=== PATIENT | female | born 2000 | race Caucasian/White ===

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

== ENCOUNTER 2018-08-24 18:13 | Inpatient (IN) ==
[2018-08-24] MEDS ORDERED: ONDANSETRON INJ 2 MG/ML 2 ML VIAL IV PRN (18:28)
[2018-08-24] MEDS ORDERED: LACTATED RINGER'S 1,000 ML IV SCH (18:30)
[2018-08-24] MEDS ORDERED: ACETAMINOPHEN 500 MG TAB PO STA (18:41)
--- NOTE | 2018-08-24 18:54 | History & Physical Report ---
Date of Service August 24, 2018 Assessment & Plan (1) Bacterial vaginosis: 17 yo at 29+wks with fever/ chills/ tachycardia, negative initial work up in ER s/p IVF/ Tylenol with persistent fever/ tachycardia No s/s of PTL FHR reassuring VE with vaginitis/ BV Plan observe, monitor, IVF, Tylenol, IV Flagyl Bed side OB US Consult hospitalist/ called and informed the chad History of Present Illness Chief Complaint: sent from ER Primary Care Provider: NO PCP Patient is a 17 yo at 29+ wks, who presented to ER ieht fever/ chills/ sore throat and flud like symptoms since yesterday She received 2 lt of IVF, her flu swab, WBCC came back normal/ negative She had been tachycardic with fever despite Tylenol ( 1000 mg at 1130) and IVF She then c/o abdominal cramping/ soreness They sent her up here for monitoring She states she is now feeling better, still has cough/ sore throat and fever She denies ctxs/ LOF/VB/ Vaginal d/c or irritation' Last SI was 2-3 days ago +FM's N&V this morning but has been keeping fluids down She is hungry and likes to eat No recent sick contacts Her has been uncomplicated except + Chlamydia at First trimester. HECTOR was negative She had been with same partner. Allergies Allergy/AdvReac Type Severity Reaction Status Date / Time cefuroxime Allergy Intermediate RASH Unverified 08/24/18 14:31 cephalexin Allergy Unknown . Unverified 08/24/18 14:31 Home Medications Home Medications Medication Instructions Recorded Confirmed Type PNV cmb#95-ferrous fumarate-FA 1 tab PO DAILY 08/24/18 08/24/18 History [] Patient History Social History Feels Safe at Home: Yes Smoking Status: Never smoker Review of Systems All systems reviewed & are unremarkable except as noted in HPI & below Physical Exam Vital Signs (Past 24 Hours): Last Vital Signs Temp 39.3 C H 08/24/18 18:16 Pulse 137 H 08/24/18 18:16 Resp 24 08/24/18 18:16 BP 116/55 L 08/24/18 18:16 Constitutional: well nourished, + ill appearing and + lethargic ENMT: external ear and nose normal, oropharynx normal Neck: trachea midline, no thyromegaly Thyroid: normal thyroid Respiratory: normal respiratory effort, lungs clear to auscultation Auscultation: lungs clear to auscultation bilaterally Cardiovascular: RRR, no murmur, no edema Rate/Rhythm: regular rate and + tachycardic Heart Sounds: normal S1 and normal S2 Gastrointestinal (Abdomen): Soft, mild LLQ tenderness, no RLQ tendernes, no rebound Genitourinary: SSE: white-yellow d/c, cx of cervix and vagina collected Cervix closed, soft Wet prep: abundant clue cells Monitoring External Monitor 150-160's, AGA Tocodynamometer No ctxs
[2018-08-24] MEDS: metroNIDAZOLE 500 MG/100 ML BAG IV SCH (19:19)
--- NOTE | 2018-08-24 19:33 | Ultrasound Report ---
US OB limited CLINICAL HISTORY: abdominal pain, fever COMPARISON STUDY: ultrasound March 26, 2018. TECHNIQUE: Transabdominal sonography of the pelvis was performed. FINDINGS: Single viable intrauterine gestation is noted. Presentation is cephalic. Please note that a dedicated anatomical survey was not performed. The placenta is normal. The femur length measur es 5.85 cm which corresponds to an estimated gestational age of 30 weeks and 4 days. Amniotic fluid i ndex is normal at 15.5 cm. heart rate is mildly elevated at 188 bpm. The cervix was not assesse d on this exam. IMPRESSION: 1. Single viable intrauterine gestation. 2. Mildly elevated heart rate of 188 bpm, a nonspecific finding. 3. No placental abnormality. 4. Normal amniotic fluid index. Electronically signed by: Yousif Cuello M.D. 08/24/2018 7:32 PM
--- NOTE | 2018-08-24 21:16 | Obstetrical Progress Note ---
Date of Service August 24, 2018 Subjective Patient is reevaluated She feels let hot ad pain all over body/ muscle is better She received IV Flagyl/ PO Tylenol No ctxs/ LOF/VB She allergic to Keflex: rash Has taken Amoxicilline with no problems I talked to Dr. Griffiths who recommended her transferred to ICU / meeting criteria for sepsis They will start IV Clindamycin Will d/c IV flagyl since Clindamycin also covers BV Patient and her mother is aware Will follow as NST Q sift Physical Exam Vital Signs (Past 24 Hours): Last Vital Signs Temp 39.2 C H 08/24/18 19:25 Pulse 134 H 08/24/18 21:09 Resp 18 08/24/18 19:25 BP 101/51 L 08/24/18 20:24 Pulse Ox 95 08/24/18 21:09
--- NOTE | 2018-08-24 22:53 | Critical Care Consultation ---
Date of Consultation August 24, 2018 Assessment & Plan (1) Admitted to intensive care unit: Reason Critically Ill: 17-year-old patient with acute febrile illness presenting with Sirs-like criteria with persistent tachycardia and febrile state. Third trimester . NEURO - * CAM ICU: NEGATIVE * Pain/Fever: Acetaminophen PRN CARDIAC/VASCULAR - * Tachycardia: * Most likely compensatory in the setting of febrile illness. * Will monitor closely for any signs/symptoms of decompensation concerning for cardiomyopathy. * Monitor on telemetry. RESPIRATORY - * Acute bronchitis in the asthmatic patient: * Will hold on nebs secondary to tachycardia at this point. * Covered with Unasyn at this time. * No hypoxia. No tachypnea. No pleuritic pain. GI/NUTRITION - * Full diet as tolerated. RENAL/LYTES - * No acute electrolyte abnormalities. * IVF: LR at 150mL/hr - * 29.5 weeks gestation: * Concerns for bacterial vaginosis. Currently treated with IV Flagyl. * Further cultures pending. * Defer continued obstetrical evaluation/management from SCREW MACHINE OPERATOR SINGLE SPINDLE perspective. ENDO - * No history of diabetes or thyroid disease. * BSGs per unit protocol. ISS --> gtt per unit policy. HEME - * Stable H&H. * Will monitor closely with volume expanding via IV fluids. ID - * SIRS-like presentation: * PCR Influenza A POSITIVE. * Spoke with SCREW MACHINE OPERATOR SINGLE SPINDLE after results. They do suggest proceeding with Tamiflu at this time. * Continue with Unasyn for suspected underlying dental infections as well. * Flagyl for BV. * Further cultures pending. LINES/IV ACCESS - * PIVs x2 DVT PROPHYLAXIS - * Will hold at this time secondary to . * SCDs I have personally spent 60 minutes of critical care time in the direct management of this patient. This is a life/limb threatening event. This includes time spent evaluating patient, direct bedside care, chart review, placing orders, interpretation of diagnostic studies, discussion with consultants, patient, and family members, as well as other required patient management activities. This time is exclusive of all separately billable procedures, and teaching time and separate from and in addition to any other critical care service time. Thank you for allowing us to participate in the care of this patient. Please refer to my attending physician's documentation for any further recommendations. The patient was seen, examined independently, agree with assessment and plan of my colleague Dean Louie. This is a 17-year-old female with no past medical history, presented to the hospital with fever, she is in her third trimester , she is G1 para 0, she did have cough with sore throat for the past few days, she did have headache, no nausea or vomiting and no diarrhea, she has no abdominal pain, she is 29 weeks into her . No sick contact. The patient was found to be tachypneic and tachycardic, admitted to the ICU. Her heart rate was 140 at some point. The patient was given IV fluids and responded to it very well. Her past medical history is none. She is non-smoker lifetime, and family history does not contribute to peripartum illness. Her physical exam revealed a young female, does not appear to be in any distress, no fever, O2 sat 97% on room air, vital signs are stable, no oral thrush, no oral lesions, dry mucosa, S1-S2 regular rate and rhythm, slightly tachycardic, lungs are clear, rhonchi mainly at the bases, abdomen is compatible with gestational age, no edema. Her labs were reviewed which showed stable CBC, and BMP, electrolytes has been repleted. Chest x-ray reviewed twice which did not show any infiltrate. Impression: 1. Influenza A pharyngitis. 2. History of chlamydia infection. 3. Third trimester 29 weeks . 4. Possible superimposed streptococcal pharyngitis. Plan: 1. Change Unasyn to Augmentin for 5 days. 2. Continue Tamiflu. 3. Decrease IV fluid to 150ml/Hour. 4. Continue with DVT prophylaxis. 5. Oral intake. 6. Appreciate SCREW MACHINE OPERATOR SINGLE SPINDLE input. 7. Replacement of potassium and magnesium. 8. Transfer to telemetry. Discussed with SCREW MACHINE OPERATOR SINGLE SPINDLE. Critical care time spent with the patient was 35 minutes. (2) Influenza A: (3) SIRS (systemic inflammatory response syndrome): (4) Tachycardia: (5) Febrile illness: (6) Bacterial vaginosis: (7) Third trimester : History of Present Illness Attending Physician: Nina Adorno MD Patient is a 17-year-old female who is 29.5 weeks who presented to the emergency department earlier this afternoon with generalized weakness, body aches, fevers, chills, sore throat, and nonproductive cough. During evaluation, the patient was found to be febrile and tachycardic. She was resuscitated with IV fluids without resolve her tachycardia. Influenza swab was negative. Urinalysis demonstrated no infection. Leukocytosis appreciated. She is not anemic. ultrasound demonstrated no acute findings otherwise. Patient underwent pelvic exam with diagnosis of bacterial vaginosis for which she was placed on intravenous Flagyl. Patient had persistent tachycardia fever and it was felt best the patient be transferred to the ICU for sepsis syndrome. Arrival in the ICU, the patient is awake, alert, and oriented. She does complain of some mucus production with a cough at this point. She denies sore throat. She reports no further joint aches/pains. She complains of a dull headache which is not the worst headache of her life. She denies any neck pain or stiffness. She reports no blurry vision, double vision, slurred speech, facial droop, unilateral weakness/numbness, chest pain, palpitations, pleuritic pain, nausea, vomiting, abdominal discomfort, hematuria, dysuria, vaginal discharge/drainage. The patient's was initially complicated with positive serology testing for chlamydia in the first trimester. She was successfully treated with antibiotics with confirmation negative results approximately 4 weeks later. She is sexually active with her partner alone. Allergies Allergy/AdvReac Type Severity Reaction Status Date / Time cefuroxime Allergy Intermediate RASH Unverified 08/24/18 14:31 cephalexin Allergy Unknown . Unverified 08/24/18 14:31 Home Medications Home Medications Medication Instructions Recorded Confirmed Type PNV cmb#95-ferrous fumarate-FA 1 tab PO DAILY 08/24/18 08/24/18 History [] Patient History Social History Preferred Language: Gabonese Communication Ability: Effective Beliefs That Will Affect Care: None marital status: Single Current Living Situation: Parent Current Living Situation Comment: Lives with mom and FOB. Other Information That Helps Us Care for You: No Feels Safe at Home: Yes Safety Concerns: Feels Safe At This Time Smoking Status: Never smoker Hx Alcohol Use: No Hx Substance Use: No Review of Systems A complete 10 point review of systems was reviewed with the patient with pertinent positives and negatives as per history of present illness. All else were negative. Physical Exam Vital Signs (Past 24 Hours): Last Vital Signs Temp 37.2 C 08/24/18 22:42 Pulse 118 H 08/24/18 22:42 Resp 20 08/24/18 22:42 BP 131/73 08/24/18 22:42 Pulse Ox 97 08/24/18 22:42 Physical Exam: VITAL SIGNS - Vital signs and nursing notes were reviewed. GENERAL - 17-year-old female appearing her stated age who is in no acute distress. Communicates well with provider and answers questions appropriately. SKIN - Without rashes. HEAD - NC/AT. EYES - PERRL with EOMI bilaterally. Sclera anicteric. Palpebral conjunctiva pink and moist with no injection noted. EARS - No deformities of external structures noted on gross examination bilaterally. No pain elicited with palpation of the tragus bilaterally. External auditory canals without discharge or otorrhea. Tympanic membranes pearly stephenson without retraction or bulging. No fluid or purulent material visualized behind the TM. Handle of malleus, umbo, cone of light, pars tensa/flaccid all easily visualized. NOSE - Midline and without cyanosis. No epistaxis or purulent drainage noted. MOUTH/OROPHARYNX - Without perioral cyanosis. Buccal mucosa pink and moist and without leukoplakia. Tongue midline with equal elevation of palate bilaterally. No tonsillar hypertrophy, erythema, or exudates noted. Good dentition noted. NECK - Neck with FROM. Supple to palpation. No lymphadenopathy noted. No nuchal rigidity. LUNGS - Chest wall symmetric without accessory muscle use, intercostals retractions, or central cyanosis. Normal vesicular breath sounds CTA B/L. No wheezes, rales, or rhonchi appreciated. CARDIAC - RRR with S1/S2. No murmur, rubs, or gallops appreciated. Reproducible anterior chest tenderness to palpation. ABDOMEN - Abdominal contour gravid without pulsations or visible masses. BS normoactive all four quadrants. No tenderness, palpable masses, hepatosplenomegaly, or ascites noted. EXTREMITIES - No clubbing or peripheral cyanosis. No pretibial edema present. +3/5 radial, posterior tibial, and dorsalis pedis pulses palpated throughout. +5/5 strength noted in UE/LE bilaterally. NEUROLOGIC - Cranial nerves II through XII grossly intact. Sensory intact to light touch throughout. PSYCH - A&Ox3 and cooperates fully with examiner. Pt is very pleasant and interacts well with examiner.
[2018-08-24] MEDS: LACTATED RINGER'S 1,000 ML IV SCH (23:06)
[2018-08-24] MEDS: AMPICILLIN/SULBACTAM SOD 1,500 MG in 0.9 % SODIUM CHLORIDE 100 ML IV SCH (23:06)
[2018-08-24 23:18] LABS: Basophils # (auto) 0.02 K/uL (0-0.2); Basophils % (auto) 0.2 %; Eosinophils # (auto) 0.05 K/uL (0-0.5); Eosinophils % (auto) 0.5 %; Hematocrit (blood only) 30.8 % (37-47); Hemoglobin 10.5 g/dL (12.0-16.0); Immature Granulocytes # (auto) 0.05 K/uL (0.00-0.02); Immature Granulocytes % (auto) 0.5 %; Lymphocytes % (auto) 13.2 %; Mean Corpuscular Hgb Conc 34.1 g/dL (32-36); Mean Corpuscular Volume 91.4 fL (80-100); Mean Platelet Volume 9.3 fL (7.4-10.4); Monocytes # (auto) 1.02 K/uL (0.11-0.59); Monocytes % (auto) 11.2 %; Neutrophils # (auto) 6.77 K/uL (1.4-6.5); Neutrophils % (auto) 74.4 %; Platelet Count 196 K/uL (130-400); RDW Coefficient of Variation 12.6 % (11.5-14.5); RDW Standard Deviation 41.7 fL (36.4-46.3); Red Blood Count 3.37 M/uL (4.2-5.4); White Blood Count 9.11 K/uL (4.8-10.8)
[2018-08-24 23:35] LABS: BUN Creatinine Ratio 5.8 (10-20); Blood Urea Nitrogen 3 mg/dl (7-18); Carbon Dioxide 23 mmol/L (21-32); Chloride 111 mmol/L (98-107); Creatinine Clr Calc Pharmacy 178.3 ml/min; Est GFR (African American) > 150.0; Est GFR (Non-African American) 132.1; Glucose 78 mg/dl (70-99); Potassium 3.4 mmol/L (3.5-5.1); Sodium 141 mmol/L (136-145)
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
[2018-08-25 00:32] LABS: Influenza B virus by PCR Neg for Influ B (Neg)
[2018-08-25] MEDS: OSELTAMIVIR PHOSPHATE 75 MG CAP PO SCH ×3 (00:59→20:53)
[2018-08-25] MEDS ORDERED: ACETAMINOPHEN 1,000 MG/100 ML VIAL IV PRN (02:16)
[2018-08-25] MEDS ORDERED: LACTATED RINGER'S 250 ML IV ONE (02:44)
[2018-08-25] MEDS ORDERED: ONDANSETRON INJ 2 MG/ML 2 ML VIAL IV PRN (02:53)
[2018-08-25] MEDS: metroNIDAZOLE 500 MG/100 ML BAG IV SCH ×2 (03:10→12:17)
[2018-08-25 03:17] LABS: Basophils # (auto) 0.01 K/uL (0-0.2); Basophils % (auto) 0.1 %; Eosinophils # (auto) 0.04 K/uL (0-0.5); Eosinophils % (auto) 0.4 %; Hematocrit (blood only) 30.5 % (37-47); Hemoglobin 10.4 g/dL (12.0-16.0); Immature Granulocytes # (auto) 0.04 K/uL (0.00-0.02); Immature Granulocytes % (auto) 0.4 %; Lymphocytes % (auto) 13.1 %; Mean Corpuscular Hgb Conc 34.1 g/dL (32-36); Mean Platelet Volume 9.3 fL (7.4-10.4); Monocytes # (auto) 1.01 K/uL (0.11-0.59); Monocytes % (auto) 11.1 %; Neutrophils # (auto) 6.84 K/uL (1.4-6.5); Neutrophils % (auto) 74.9 %; Platelet Count 183 K/uL (130-400); RDW Coefficient of Variation 12.5 % (11.5-14.5); RDW Standard Deviation 41.5 fL (36.4-46.3); Red Blood Count 3.35 M/uL (4.2-5.4); White Blood Count 9.14 K/uL (4.8-10.8)
[2018-08-25 03:34] LABS: Alanine Aminotransferase 16 U/L (12-78); Albumin Level 2.4 gm/dl (3.4-5.0); Aspartate Aminotransferase 17 U/L (15-37); BUN Creatinine Ratio 6.1 (10-20); Blood Urea Nitrogen 3 mg/dl (7-18); Calcium 7.9 mg/dl (8.5-10.1); Carbon Dioxide 22 mmol/L (21-32); Chloride 110 mmol/L (98-107); Creatinine Clr Calc Pharmacy 205.7 ml/min; Est GFR (African American) > 150.0; Est GFR (Non-African American) 138.5; Glucose 81 mg/dl (70-99); Magnesium 1.3 mg/dl (1.8-2.4); Potassium 3.3 mmol/L (3.5-5.1); Sodium 138 mmol/L (136-145)
[2018-08-25 03:37] LABS: Albumin Globulin Ratio 0.7 (0.9-2); Alkaline Phosphatase 103 U/L (45-117); Bilirubin,Total 0.3 mg/dl (0.2-1); Globulin 3.5 gm/dl (2.5-4.0); Total Protein 5.9 gm/dl (6.4-8.2)
[2018-08-25] MEDS: AMPICILLIN/SULBACTAM SOD 1,500 MG in 0.9 % SODIUM CHLORIDE 100 ML IV SCH ×3 (05:00→16:17)
[2018-08-25] MEDS: LACTATED RINGER'S 1,000 ML IV SCH ×4 (05:34→12:30)
[2018-08-25] MEDS ORDERED: POTASSIUM CHLORIDE 20 MEQ TABCR PO STA (07:22)
--- NOTE | 2018-08-25 07:38 | Ultrasound Report ---
BILATERAL LOWER EXTREMITY VENOUS DOPPLER CLINICAL HISTORY: Shortness of breath. Cough. COMPARISON STUDY: No previous studies for comparison. TECHNIQUE: Sonography of the deep venous system of the bilateral lower extremities was performed. Co mpression and augmentation were evaluated. FINDINGS: The bilateral common femoral, superficial femoral and popliteal veins were compressible. A ugmentation was normal. Flow was shown within the deep calf vessels. IMPRESSION: No evidence of deep venous thrombus within the bilateral lower extremities. Electronically signed by: Yousif Cuello M.D. 08/25/2018 7:37 AM
--- NOTE | 2018-08-25 07:46 | XRay Report ---
XR chest 1V portable CLINICAL HISTORY: sob/cough COMPARISON STUDY: Chest radiograph August 24, 2018. TECHNIQUE: The patient's abdomen and pelvis were double shielded due to . Portable AP chest radiograph was obtained. FINDINGS: Lung volumes are normal. There is no pneumothorax or pleural effusion. There is no consolid ation. Cardiomediastinal silhouette is normal. IMPRESSION: No acute cardiopulmonary findings. Electronically signed by: Yousif Cuello M.D. 08/25/2018 7:44 AM
--- NOTE | 2018-08-25 11:09 | Obstetrical Progress Note ---
Date of Service August 25, 2018 Subjective Patient is seen and examined She feels much better compared to yesterday No more fever/ chills Still has cough No cts/ LOF/VB +FM No N&V Tolerating regular diet Ambulating, using BR Vital Signs Temp Pulse Resp BP Pulse Ox 08/25/18 09:01 118 H 115/74 08/25/18 08:00 107 H 27 H 08/25/18 07:01 37 C 109 H 16 107/47 L 97 08/25/18 06:00 112 H 18 95/46 L 96 08/25/18 05:00 114 H 19 98/49 L 95 08/25/18 04:00 37.4 C 129 H 22 112/51 L 96 08/25/18 03:00 37.4 C 127 H 19 115/53 L 96 08/25/18 02:00 38.2 C H 132 H 16 105/48 L 100 08/25/18 01:00 123 H 16 116/65 100 08/25/18 00:00 37.2 C 127 H 18 116/69 98 08/25/18 08/25/18 08/25/18 Range/Units 03:04 03:04 03:04 WBC 9.14 (4.8-10.8) K/uL RBC 3.35 L (4.2-5.4) M/uL Hgb 10.4 L (12.0-16.0) g/dL Hct 30.5 L (37-47) % MCV 91.0 (80-100) fL MCH 31.0 (25-34) pg MCHC 34.1 (32-36) g/dL RDW Std Deviation 41.5 (36.4-46.3) fL RDW Coeff of Murali 12.5 (11.5-14.5) % Plt Count 183 (130-400) K/uL MPV 9.3 (7.4-10.4) fL Immature Gran % (Auto) 0.4 % Neut % (Auto) 74.9 % Lymph % (Auto) 13.1 % Ness % (Auto) 11.1 % Eos % (Auto) 0.4 % Baso % (Auto) 0.1 % Immature Gran # (Auto) 0.04 H (0.00-0.02) K/uL Neut # (Auto) 6.84 H (1.4-6.5) K/uL Lymph # (Auto) 1.20 (1.2-3.4) K/uL Ness # (Auto) 1.01 H (0.11-0.59) K/uL Eos # (Auto) 0.04 (0-0.5) K/uL Baso # (Auto) 0.01 (0-0.2) K/uL Sodium 138 (136-145) mmol/L Potassium 3.3 L (3.5-5.1) mmol/L Chloride 110 H (98-107) mmol/L Carbon Dioxide 22 (21-32) mmol/L Anion Gap 6.0 (3-11) BUN 3 L (7-18) mg/dl Creatinine 0.52 L (0.6-1.2) mg/dl Est Cr Clr Drug Dosing 205.7 ml/min Est GFR ( Amer) > 150.0 Est GFR (Non-Af Amer) 138.5 BUN/Creatinine Ratio 6.1 L (10-20) Glucose 81 (70-99) mg/dl Lactate (0.4-2.0) mmol/L Calcium 7.9 L (8.5-10.1) mg/dl Magnesium 1.3 L (1.8-2.4) mg/dl Total Bilirubin 0.3 (0.2-1) mg/dl AST 17 (15-37) U/L ALT 16 (12-78) U/L Alkaline Phosphatase 103 (45-117) U/L Troponin I < 0.015 (0-0.045) ng/ml Total Protein 5.9 L (6.4-8.2) gm/dl Albumin 2.4 L (3.4-5.0) gm/dl Globulin 3.5 (2.5-4.0) gm/dl Albumin/Globulin Ratio 0.7 L (0.9-2) Nasal Screen MRSA (PCR) (Negative) C. pneumoniae IgG Ab C. trachomatis IgG Ab C. psittaci IgG Titer Monoscreen (Negative) Influenza Type A (PCR) (Neg) Influenza Type B (PCR) (Neg) 08/24/18 08/24/18 08/24/18 Range/Units 23:50 23:15 23:04 WBC (4.8-10.8) K/uL RBC (4.2-5.4) M/uL Hgb (12.0-16.0) g/dL Hct (37-47) % MCV (80-100) fL MCH (25-34) pg MCHC (32-36) g/dL RDW Std Deviation (36.4-46.3) fL RDW Coeff of Murali (11.5-14.5) % Plt Count (130-400) K/uL MPV (7.4-10.4) fL Immature Gran % (Auto) % Neut % (Auto) % Lymph % (Auto) % Ness % (Auto) % Eos % (Auto) % Baso % (Auto) % Immature Gran # (Auto) (0.00-0.02) K/uL Neut # (Auto) (1.4-6.5) K/uL Lymph # (Auto) (1.2-3.4) K/uL Ness # (Auto) (0.11-0.59) K/uL Eos # (Auto) (0-0.5) K/uL Baso # (Auto) (0-0.2) K/uL Sodium (136-145) mmol/L Potassium (3.5-5.1) mmol/L Chloride (98-107) mmol/L Carbon Dioxide (21-32) mmol/L Anion Gap (3-11) BUN (7-18) mg/dl Creatinine (0.6-1.2) mg/dl Est Cr Clr Drug Dosing ml/min Est GFR ( Amer) Est GFR (Non-Af Amer) BUN/Creatinine Ratio (10-20) Glucose (70-99) mg/dl Lactate (0.4-2.0) mmol/L Calcium (8.5-10.1) mg/dl Magnesium (1.8-2.4) mg/dl Total Bilirubin (0.2-1) mg/dl AST (15-37) U/L ALT (12-78) U/L Alkaline Phosphatase (45-117) U/L Troponin I (0-0.045) ng/ml Total Protein (6.4-8.2) gm/dl Albumin (3.4-5.0) gm/dl Globulin (2.5-4.0) gm/dl Albumin/Globulin Ratio (0.9-2) Nasal Screen MRSA (PCR) Negative (Negative) C. pneumoniae IgG Ab C. trachomatis IgG Ab C. psittaci IgG Titer Monoscreen Negative (Negative) Influenza Type A (PCR) Pos for Influ A A* (Neg) Influenza Type B (PCR) Neg for Influ B (Neg) 08/24/18 08/24/18 08/24/18 Range/Units 23:04 23:04 23:04 WBC 9.11 (4.8-10.8) K/uL RBC 3.37 L (4.2-5.4) M/uL Hgb 10.5 L (12.0-16.0) g/dL Hct 30.8 L (37-47) % MCV 91.4 (80-100) fL MCH 31.2 (25-34) pg MCHC 34.1 (32-36) g/dL RDW Std Deviation 41.7 (36.4-46.3) fL RDW Coeff of Murali 12.6 (11.5-14.5) % Plt Count 196 (130-400) K/uL MPV 9.3 (7.4-10.4) fL Immature Gran % (Auto) 0.5 % Neut % (Auto) 74.4 % Lymph % (Auto) 13.2 % Ness % (Auto) 11.2 % Eos % (Auto) 0.5 % Baso % (Auto) 0.2 % Immature Gran # (Auto) 0.05 H (0.00-0.02) K/uL Neut # (Auto) 6.77 H (1.4-6.5) K/uL Lymph # (Auto) 1.20 (1.2-3.4) K/uL Ness # (Auto) 1.02 H (0.11-0.59) K/uL Eos # (Auto) 0.05 (0-0.5) K/uL Baso # (Auto) 0.02 (0-0.2) K/uL Sodium 141 (136-145) mmol/L Potassium 3.4 L (3.5-5.1) mmol/L Chloride 111 H (98-107) mmol/L Carbon Dioxide 23 (21-32) mmol/L Anion Gap 7.0 (3-11) BUN 3 L (7-18) mg/dl Creatinine 0.60 (0.6-1.2) mg/dl Est Cr Clr Drug Dosing 178.3 ml/min Est GFR ( Amer) > 150.0 Est GFR (Non-Af Amer) 132.1 BUN/Creatinine Ratio 5.8 L (10-20) Glucose 78 (70-99) mg/dl Lactate 1.1 (0.4-2.0) mmol/L Calcium 8.0 L (8.5-10.1) mg/dl Magnesium (1.8-2.4) mg/dl Total Bilirubin (0.2-1) mg/dl AST (15-37) U/L ALT (12-78) U/L Alkaline Phosphatase (45-117) U/L Troponin I (0-0.045) ng/ml Total Protein (6.4-8.2) gm/dl Albumin (3.4-5.0) gm/dl Globulin (2.5-4.0) gm/dl Albumin/Globulin Ratio (0.9-2) Nasal Screen MRSA (PCR) (Negative) C. pneumoniae IgG Ab C. trachomatis IgG Ab C. psittaci IgG Titer Monoscreen (Negative) Influenza Type A (PCR) (Neg) Influenza Type B (PCR) (Neg) 08/24/18 Range/Units 14:50 WBC (4.8-10.8) K/uL RBC (4.2-5.4) M/uL Hgb (12.0-16.0) g/dL Hct (37-47) % MCV (80-100) fL MCH (25-34) pg MCHC (32-36) g/dL RDW Std Deviation (36.4-46.3) fL RDW Coeff of Murali (11.5-14.5) % Plt Count (130-400) K/uL MPV (7.4-10.4) fL Immature Gran % (Auto) % Neut % (Auto) % Lymph % (Auto) % Ness % (Auto) % Eos % (Auto) % Baso % (Auto) % Immature Gran # (Auto) (0.00-0.02) K/uL Neut # (Auto) (1.4-6.5) K/uL Lymph # (Auto) (1.2-3.4) K/uL Ness # (Auto) (0.11-0.59) K/uL Eos # (Auto) (0-0.5) K/uL Baso # (Auto) (0-0.2) K/uL Sodium (136-145) mmol/L Potassium (3.5-5.1) mmol/L Chloride (98-107) mmol/L Carbon Dioxide (21-32) mmol/L Anion Gap (3-11) BUN (7-18) mg/dl Creatinine (0.6-1.2) mg/dl Est Cr Clr Drug Dosing ml/min Est GFR ( Amer) Est GFR (Non-Af Amer) BUN/Creatinine Ratio (10-20) Glucose (70-99) mg/dl Lactate (0.4-2.0) mmol/L Calcium (8.5-10.1) mg/dl Magnesium (1.8-2.4) mg/dl Total Bilirubin (0.2-1) mg/dl AST (15-37) U/L ALT (12-78) U/L Alkaline Phosphatase (45-117) U/L Troponin I (0-0.045) ng/ml Total Protein (6.4-8.2) gm/dl Albumin (3.4-5.0) gm/dl Globulin (2.5-4.0) gm/dl Albumin/Globulin Ratio (0.9-2) Nasal Screen MRSA (PCR) (Negative) C. pneumoniae IgG Ab Pending C. trachomatis IgG Ab Pending C. psittaci IgG Titer Pending Monoscreen (Negative) Influenza Type A (PCR) (Neg) Influenza Type B (PCR) (Neg) PE: Alert orientedx3, NAD,smiling Abd soft, NT gravid FHR 150's, she is on NST now Ext NT, no edema AP: 17 yo at 29+ wks admitted for fever/ tachycardia, Influenza A+ On Tamiflu, IV unasyn: plan to switch to PO AUgmentin On IV Flagyl: will switch to PO Transfer to telemetry floor per ICU recommendation No s/s of PTL FHR reassuring Continue to monitor closely d/c plan per medical team Physical Exam Vital Signs (Past 24 Hours): Last Vital Signs Temp 37 C 08/25/18 07:01 Pulse 118 H 08/25/18 09:01 Resp 27 H 08/25/18 08:00 BP 115/74 08/25/18 09:01 Pulse Ox 97 08/25/18 07:01
[2018-08-25] MEDS: ACETAMINOPHEN 325 MG TAB PO PRN ×2 (11:14→16:26)
[2018-08-25] MEDS: MAGNESIUM OXIDE 400 MG TAB PO SCH ×2 (11:46→20:53)
--- NOTE | 2018-08-25 12:49 | Critical Care Progress Note ---
Date of Service August 25, 2018 Assessment & Plan (1) Influenza A: Impression: 1. Influenza A pharyngitis. 2. Chlamydia infection on Flagyl. 3. Third trimester, 29 weeks . 4. Superimposed bacterial pharyngitis cannot be excluded. Plan: 1. I will change Unasyn to Augmentin for total of 5 days. 2. Continue Tamiflu twice daily for 7 days. 3. Decrease IV fluid 250 mL an hour and then taper to off for the next 10 hours. 4. Oral intake. 5. Appreciate EXECUTIVE STAFF ASSISTANT input, discussed with them. 6. Telemetry floor. 7. Replacement of electrolytes. Thank you, discussed with the staff on rounds and details. CCM time was 35 minutes. Subjective The patient is stable overnight, 2 episodes of tachycardia which is expected in a patient who is in the third trimester of , the patient when I interviewed her, she feels better, denies any pain, no cough or shortness of breath at the moment, she does have sore throat which has been persistent. She tested positive for influenza A. She has been maintained on Unasyn, Flagyl and Tamiflu. IV fluid has been continued at 200 and hour. Physical Exam Vital Signs (Past 24 Hours): Last Vital Signs Temp 37.3 C 08/25/18 12:23 Pulse 90 08/25/18 12:40 Resp 20 08/25/18 12:23 BP 152/83 H 08/25/18 12:40 Pulse Ox 96 08/25/18 12:23 Physical Exam: Young female does not appear to be in any distress, S1-S2 regular rate and rhythm, slight tachycardia, lungs with distant breath sounds, no oral lesion, no rash, abdomen consistent with her gestational age. No edema. Results & Data Laboratory Results Labs were reviewed personally Diagnostic Findings Chest x-ray did not show any pneumonia.
--- NOTE | 2018-08-25 15:41 | Hospitalist Progress Note ---
Date of Service August 25, 2018 Assessment & Plan (1) SIRS (systemic inflammatory response syndrome): presented with fever , tachycardia , source of infection : positive influenza A clinically improved overnight after IV hydration remains afebrile since morning Vitals stable cont Tx for Influenza (2) Influenza A: influenza A positive started on Tamiflu complete 5 days tx (3) Third trimester : normal heart sound in USG with appreciate input from OB (4) Bacterial vaginosis: started on falgyl FULL CODE DISPOSITION; expected to be discharged home in next 1-2 days if remains medically stable /afebrile Subjective afebrile , vitals stable sitting up , finishing lunch denies of any headache , no body aches or pain no nausea /vomiting , no diarrhea or symptoms Physical Exam Vital Signs (Past 24 Hours): Last Vital Signs Temp 37 C 08/25/18 14:53 Pulse 97 H 08/25/18 14:53 Resp 18 08/25/18 14:53 BP 98/50 L 08/25/18 14:53 Pulse Ox 96 08/25/18 14:53 Physical Exam: GENERAL: No sign of distress, HEENT: Sclera nonicteric, pink-purple bilateral equal reactive to light extraocular muscle intact Normal oral mucosa, neck: No JVD, no thyromegaly, trachea midline Lungs: Clear to auscultate, no wheeze or rales Cardiovascular: Regular S1 and S2, no murmur or gallop, no JVD, no lower extremity edema Abdomen: Soft, nontender, bowel sounds active, Uterus : Gravid Extremities: No rash or deformity, normal joint, Neuro: No focal neurological deficit, no dysarthria, no facial droop Psych: Alert awake oriented x3: Euthymic Skin: No rash LYMPH NODES: No cervical lymphadenopathy
[2018-08-25] MEDS ORDERED: POTASSIUM CHLORIDE 10 MEQ TABCR PO ONE (17:00)
[2018-08-25] MEDS: AMOXICILLIN/CLAVULANATE 500 MG TAB PO SCH (17:47)
[2018-08-25] MEDS: metroNIDAZOLE 500 MG TAB PO SCH (20:53)
[2018-08-25] MEDS ORDERED: MAGNESIUM OXIDE 400 MG TAB PO SCH (21:00)
[2018-08-26] MEDS: AMOXICILLIN/CLAVULANATE 500 MG TAB PO SCH (08:40)
[2018-08-26] MEDS: OSELTAMIVIR PHOSPHATE 75 MG CAP PO SCH (08:40)
[2018-08-26] MEDS: metroNIDAZOLE 500 MG TAB PO SCH (08:40)
[2018-08-26] MEDS: MAGNESIUM OXIDE 400 MG TAB PO SCH (08:41)
[2018-08-26] MEDS: ACETAMINOPHEN 325 MG TAB PO PRN (08:45)
[2018-08-26] MEDS ORDERED: PRENATAL VITAMIN 1 TAB PO SCH (09:00)
[2018-08-26 09:58] LABS: Calcium 8.2 mg/dl (8.5-10.1); Creatinine Clr Calc Pharmacy 145.9 ml/min; Est GFR (African American) 136.1; Est GFR (Non-African American) 117.4; Magnesium 1.4 mg/dl (1.8-2.4); Potassium 3.4 mmol/L (3.5-5.1)
--- NOTE | 2018-08-26 10:36 | Obstetrical Progress Note ---
Date of Service August 26, 2018 Subjective feeling much better Physical Exam Vital Signs (Past 24 Hours): Last Vital Signs Temp 36.9 C 08/26/18 07:59 Pulse 91 H 08/26/18 07:59 Resp 22 08/26/18 07:59 BP 109/69 08/26/18 07:59 Pulse Ox 93 08/26/18 07:59 Constitutional: WD/WN, vitals as above comfortable Gastrointestinal (Abdomen): Percussion/Palpation: abdomen soft NST Cat 1 afebrile Results & Data Laboratory Results Vital Signs Temp Pulse Pulse Pulse Resp BP BP 08/26/18 07:59 36.9 C 91 H 22 109/69 08/26/18 04:27 36.8 C 99 H 18 119/75 08/26/18 04:10 36.8 C 99 H 18 119/75 08/25/18 23:30 36.7 C 101 H 18 118/81 08/25/18 20:15 36.8 C 100 H 18 117/74 08/25/18 18:03 37.0 C 98 H 18 117/75 08/25/18 14:53 37 C 97 H 18 98/50 L 08/25/18 12:40 90 152/83 H 08/25/18 12:23 37.3 C 110 H 20 116/66 08/25/18 11:01 115 H 18 119/73 Pulse Ox 08/26/18 07:59 93 08/26/18 04:27 93 08/26/18 04:10 93 08/25/18 23:30 97 08/25/18 20:15 98 08/25/18 18:03 97 08/25/18 14:53 96 08/25/18 12:40 08/25/18 12:23 96 08/25/18 11:01 Intake and Output 08/25/18 08/26/18 08/26/18 22:59 06:59 14:59 Intake Total 1000 / 2954.000 Balance 1000 / 1054.000 Intake: IV 1000 / 2104.000 Unasyn 1,500 mg In Sodium 0 / 104 Chloride 100 ml @ 200 mls/hr IV Q6H GÓMEZ Rx#:[id number] Lr 1,000 ml @ 150 mls/hr IV . 1000 / 2000.000 Q6H40M GÓMEZ Rx#:[id number] 08/24/18 08/24/18 08/24/18 23:04 23:04 23:04 WBC 9.11 RBC 3.37 L Hgb 10.5 L Hct 30.8 L MCV 91.4 MCH 31.2 MCHC 34.1 RDW Std Deviation 41.7 RDW Coeff of Murali 12.6 Plt Count 196 MPV 9.3 Immature Gran % (Auto) 0.5 Neut % (Auto) 74.4 Lymph % (Auto) 13.2 [place] % (Auto) 11.2 Eos % (Auto) 0.5 Baso % (Auto) 0.2 Immature Gran # (Auto) 0.05 H Neut # (Auto) 6.77 H Lymph # (Auto) 1.20 [place] # (Auto) 1.02 H Eos # (Auto) 0.05 Baso # (Auto) 0.02 Sodium 141 Potassium 3.4 L Chloride 111 H Carbon Dioxide 23 Anion Gap 7.0 BUN 3 L Creatinine 0.60 Est Cr Clr Drug Dosing 178.3 Est GFR ( Amer) > 150.0 Est GFR (Non-Af Amer) 132.1 BUN/Creatinine Ratio 5.8 L Glucose 78 Lactate 1.1 Calcium 8.0 L Magnesium Total Bilirubin AST ALT Alkaline Phosphatase Troponin I Total Protein Albumin Globulin Albumin/Globulin Ratio Nasal Screen MRSA (PCR) Monoscreen Influenza Type A (PCR) Influenza Type B (PCR) 08/24/18 08/24/18 08/24/18 23:04 23:15 23:50 WBC RBC Hgb Hct MCV MCH MCHC RDW Std Deviation RDW Coeff of Murali Plt Count MPV Immature Gran % (Auto) Neut % (Auto) Lymph % (Auto) [place] % (Auto) Eos % (Auto) Baso % (Auto) Immature Gran # (Auto) Neut # (Auto) Lymph # (Auto) [place] # (Auto) Eos # (Auto) Baso # (Auto) Sodium Potassium Chloride Carbon Dioxide Anion Gap BUN Creatinine Est Cr Clr Drug Dosing Est GFR ( Amer) Est GFR (Non-Af Amer) BUN/Creatinine Ratio Glucose Lactate Calcium Magnesium Total Bilirubin AST ALT Alkaline Phosphatase Troponin I Total Protein Albumin Globulin Albumin/Globulin Ratio Nasal Screen MRSA (PCR) Negative Monoscreen Negative Influenza Type A (PCR) Pos for Influ A A* Influenza Type B (PCR) Neg for Influ B 08/25/18 08/25/18 08/25/18 03:04 03:04 03:04 WBC 9.14 RBC 3.35 L Hgb 10.4 L Hct 30.5 L MCV 91.0 MCH 31.0 MCHC 34.1 RDW Std Deviation 41.5 RDW Coeff of Murali 12.5 Plt Count 183 MPV 9.3 Immature Gran % (Auto) 0.4 Neut % (Auto) 74.9 Lymph % (Auto) 13.1 [place] % (Auto) 11.1 Eos % (Auto) 0.4 Baso % (Auto) 0.1 Immature Gran # (Auto) 0.04 H Neut # (Auto) 6.84 H Lymph # (Auto) 1.20 [place] # (Auto) 1.01 H Eos # (Auto) 0.04 Baso # (Auto) 0.01 Sodium 138 Potassium 3.3 L Chloride 110 H Carbon Dioxide 22 Anion Gap 6.0 BUN 3 L Creatinine 0.52 L Est Cr Clr Drug Dosing 205.7 Est GFR ( Amer) > 150.0 Est GFR (Non-Af Amer) 138.5 BUN/Creatinine Ratio 6.1 L Glucose 81 Lactate Calcium 7.9 L Magnesium 1.3 L Total Bilirubin 0.3 AST 17 ALT 16 Alkaline Phosphatase 103 Troponin I < 0.015 Total Protein 5.9 L Albumin 2.4 L Globulin 3.5 Albumin/Globulin Ratio 0.7 L Nasal Screen MRSA (PCR) Monoscreen Influenza Type A (PCR) Influenza Type B (PCR) 08/26/18 09:22 WBC RBC Hgb Hct MCV MCH MCHC RDW Std Deviation RDW Coeff of Murali Plt Count MPV Immature Gran % (Auto) Neut % (Auto) Lymph % (Auto) [place] % (Auto) Eos % (Auto) Baso % (Auto) Immature Gran # (Auto) Neut # (Auto) Lymph # (Auto) [place] # (Auto) Eos # (Auto) Baso # (Auto) Sodium 139 Potassium 3.4 L Chloride 108 H Carbon Dioxide 21 Anion Gap 10.0 BUN 4 L Creatinine 0.74 Est Cr Clr Drug Dosing 145.9 Est GFR ( Amer) 136.1 Est GFR (Non-Af Amer) 117.4 BUN/Creatinine Ratio 6.0 L Glucose 148 H Lactate Calcium 8.2 L Magnesium 1.4 L Total Bilirubin AST ALT Alkaline Phosphatase Troponin I Total Protein Albumin Globulin Albumin/Globulin Ratio Nasal Screen MRSA (PCR) Monoscreen Influenza Type A (PCR) Influenza Type B (PCR) Will discharge home follow up in office
--- NOTE | 2018-08-31 14:55 | Discharge Summary ---
HISTORY OF PRESENT ILLNESS: The patient is a 17-year-old female 1, para 0, presents to the ER with flu-like symptoms, temperature and 29-1/2 weeks . Her past medical history is significant for migraines and asthma. She is admitted from the ER with signs and symptoms of influenza versus dehydration. The patient was admitted. She had a workup. She ended up going to the ICU due to systemic inflammatory response syndrome and positive for influenza A. She was given IV hydration and Tamiflu and started on Flagyl for bacterial vaginosis. Her echocardiogram and EKG were normal. The patient was subsequently discharged home in stable condition on 08/26/2018 with diagnoses of and influenza A, stable. She was continued on Tamiflu on discharge and will be seen in 1 week in the office.
== END 2018-08-26 12:56 | disposition home or self-care (01) | DRG 832 ==
LOC: OPB 18:13 → 4S1 18:15 → 1E 22:40 → 2E 08-25 12:05 → 4E 08-25 18:02 → 4N 08-25 20:18

== ENCOUNTER 2018-11-08 05:47 | Inpatient (IN) ==
[2018-11-08] MEDS ORDERED: OXYTOCIN 30 UNITS/500 ML BAG IV PRN ×2 (06:22→14:38)
[2018-11-08 06:47] LABS: Hematocrit (blood only) 36.5 % (37-47); Hemoglobin 12.3 g/dL (12.0-16.0); Mean Corpuscular Volume 86.5 fL (80-100); Mean Platelet Volume 10.2 fL (7.4-10.4); Platelet Count 208 K/uL (130-400); RDW Coefficient of Variation 13.9 % (11.5-14.5); RDW Standard Deviation 43.1 fL (36.4-46.3); Red Blood Count 4.22 M/uL (4.2-5.4); White Blood Count 13.86 K/uL (4.8-10.8)
[2018-11-08 06:48] LABS: Mean Corpuscular Hgb Conc 33.7 g/dL (32-36)
[2018-11-08] MEDS ORDERED: BUPIVACAINE 0.25% 30 ML VIAL ONE (06:54)
[2018-11-08] MEDS ORDERED: ePHEDrine sulfate 50 MG/ML AMP ONE (06:54)
[2018-11-08] MEDS ORDERED: fentaNYL 2MCG/ML ROPIV 1.25MG/ML 100 ML BAG EPI ONE (06:55)
[2018-11-08] MEDS ORDERED: fentaNYL citrate 100 MCG/2 ML VIAL ONE (06:55)
[2018-11-08] MEDS: LACTATED RINGER'S 1,000 ML IV PRN ×2 (07:00→09:47)
--- NOTE | 2018-11-08 07:01 | Obstetrical Progress Note ---
Date of Service November 08, 2018 Physical Exam Physical Exam: Admit Note 18 F P0010 at 40.1 weeks admitted in active labor. Cervix 6-7/90/0/bulging membranes/vertex by nurse. GBS is negative. FHT Cat 1. Patient will be admitted and is planning an epidural. Results & Data Vital Signs (Past 12 Hours) Vital Signs Temp Pulse Resp BP 11/08/18 05:59 37.4 C 109 H 20 138/71 11/08/18 05:53 113 H 198/85 H
[2018-11-08] MEDS ORDERED: DiphenhydrAMINE HCL 50 MG/ML VIAL IV PRN (07:17)
[2018-11-08] MEDS ORDERED: NALOXONE HCL 1 MG in SODIUM CHLORIDE 0.9% 1000ML 1,000 ML IV PRN (07:17)
[2018-11-08] MEDS ORDERED: NALOXONE HCL 0.4 MG/1 ML VIAL/CARP IV PRN (07:17)
[2018-11-08] MEDS ORDERED: fentaNYL 2MCG/ML ROPIV 1.25MG/ML 100 ML BAG EPI PRN (07:17)
[2018-11-08] MEDS ORDERED: ePHEDrine sulfate 50 MG/ML AMP IV PRN (07:17)
[2018-11-08] MEDS ORDERED: NALBUPHINE HCL INJ 10 MG/ML AMP IV PRN (07:17)
[2018-11-08] MEDS ORDERED: ONDANSETRON INJ 2 MG/ML 2 ML VIAL IV PRN (07:17)
--- NOTE | 2018-11-08 07:19 | Anesthesiology Consultation ---
Date of Service November 08, 2018 Assessment & Plan (1) Encounter for pre-operative examination: Chart Review Chart Review: Patient NOT seen in Pre Admission Testing and Acceptable Risk for Labor Epidural Consults Requested none History Height/Weight Height: 5 ft 7 in Weight: 102.512 kg Allergies Allergy/AdvReac Type Severity Reaction Status Date / Time cefuroxime Allergy Intermediate RASH Verified 11/08/18 06:32 cephalexin Allergy Unknown . Verified 11/08/18 06:32 Medications Home Medications Medication Instructions Recorded Confirmed Last Taken PNV cmb#95-ferrous fumarate-FA 1 tab PO DAILY 08/24/18 11/08/18 11/07/18 08:00 [] Past Medical History Medical History Anxiety Depression Exercise / Class Metabolic Activity II 4-5 Yardwork/Stairs/Walk up hill Past Anesthesia History No Hx of Anesthesia Complications and No Family Hx of Anesthesia Complications History of PONV No Hx of PONV and No Hx of Motion Sickness Social History Smoking Status: Former smoker Hx Alcohol Use: No Hx Substance Use: No substance use type: does not use Physical Exam Vital Signs Last Vital Signs Temp 37.4 C 11/08/18 05:59 Pulse 111 H 11/08/18 07:28 Resp 20 11/08/18 07:19 BP 140/71 11/08/18 07:23 Pulse Ox 99 11/08/18 07:28 Testing Laboratory Results 11/08/18 06:32
--- NOTE | 2018-11-08 08:28 | History & Physical Report ---
Date of Service November 08, 2018 Assessment & Plan (1) Uterine contractions at greater than 20 weeks of gestation: 18 yo at 40.1 wks admitted for labor, received epdiraul for pain GBS negative FHR reassuring Continue to monitor Anticipate History of Present Illness Chief Complaint: Contractions Primary Care Provider: NO PCP Patient is a 18 yo at 40.1 wks, started to have ctxs around 4 am, no LOF/VB +FM She presented in active labor and received epidural for pain Comfortable now Her has been uncomplicated except admission for influenza / pneumonia during this GBS negative Allergies Allergy/AdvReac Type Severity Reaction Status Date / Time cefuroxime Allergy Intermediate RASH Verified 11/08/18 06:32 cephalexin Allergy Unknown . Verified 11/08/18 06:32 Home Medications Home Medications Medication Instructions Recorded Confirmed Type PNV cmb#95-ferrous fumarate-FA 1 tab PO DAILY 08/24/18 11/08/18 History [] Patient History Medical History Anxiety Depression Social History Preferred Language: Nepali Communication Ability: Effective Beliefs That Will Affect Care: None marital status: Single Current Living Situation: Other Current Living Situation Comment: fob Other Information That Helps Us Care for You: No Feels Safe at Home: Yes Safety Concerns: Feels Safe At This Time Smoking Status: Former smoker Hx Alcohol Use: No 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 h/o Genital HSV h/o Chlamydia on 04/2018, treated and HECTOR was negative Review of Systems All systems reviewed & are unremarkable except as noted in HPI & below Physical Exam Genitourinary: VE: 6cm/ 80%/ -1, bulging bag, AROM'ed clear fluid, vertex Results & Data Vital Signs (Past 12 Hours) Vital Signs Temp Pulse Resp BP Pulse Ox 11/08/18 08:22 94 H 129/73 11/08/18 08:18 98 H 98 11/08/18 08:13 104 H 98 11/08/18 08:08 97 H 96 11/08/18 08:03 104 H 151/84 H 97 11/08/18 07:58 107 H 98 06/07/19 07:57 108 H 156/87 H 11/08/18 07:55 104 H 148/81 H 11/08/18 07:53 108 H 131/79 97 11/08/18 07:51 104 H 135/81 11/08/18 07:49 104 H 142/79 H 11/08/18 07:48 98 H 97 11/08/18 07:47 100 H 156/87 H 11/08/18 07:45 99 H 117/65 11/08/18 07:43 102 H 126/73 98 11/08/18 07:41 101 H 134/69 11/08/18 07:39 93 H 120/65 11/08/18 07:38 107 H 97 11/08/18 07:37 89 127/74 11/08/18 07:35 100 H 140/77 11/08/18 07:33 99 H 99 11/08/18 07:28 111 H 99 11/08/18 07:23 103 H 140/71 100 11/08/18 07:19 92 H 20 135/73 11/08/18 05:59 37.4 C 109 H 20 138/71 11/08/18 05:53 113 H 198/85 H Monitoring External Monitor Category I Tocodynamometer Ctxs q 1-2 min
[2018-11-08 08:46] LABS: Albumin Level 2.7 gm/dl (3.4-5.0); BUN Creatinine Ratio 8.1 (10-20); Calcium 9.5 mg/dl (8.5-10.1); Creatinine Clr Calc Pharmacy 141.6 ml/min; Est GFR (African American) 126.8; Est GFR (Non-African American) 109.4; Potassium 3.3 mmol/L (3.5-5.1)
[2018-11-08 08:49] LABS: Albumin Globulin Ratio 0.7 (0.9-2); Bilirubin,Total 0.3 mg/dl (0.2-1); Globulin 4.1 gm/dl (2.5-4.0); Total Protein 6.8 gm/dl (6.4-8.2)
--- NOTE | 2018-11-08 13:20 | Obstetrical Progress Note ---
Date of Service November 08, 2018 Subjective Patient started to push about 10 min ago Head is partially FHR categ I Ctxs q 2-3 min Anticipate Results & Data Vital Signs (Past 12 Hours) Vital Signs Temp Pulse Resp BP Pulse Ox 11/08/18 13:18 133 H 100 11/08/18 13:13 148 H 100 11/08/18 13:08 133 H 98 11/08/18 13:07 97 H 149/73 H 11/08/18 13:03 122 H 100 11/08/18 12:58 100 H 100 11/08/18 12:53 99 H 100 11/08/18 12:51 112 H 129/76 11/08/18 12:48 117 H 100 11/08/18 12:43 98 H 100 11/08/18 12:38 97 H 126/69 100 11/08/18 12:33 96 H 100 11/08/18 12:28 96 H 100 11/08/18 12:23 104 H 100 11/08/18 12:22 96 H 131/68 11/08/18 12:18 108 H 100 11/08/18 12:13 98 H 100 11/08/18 12:09 99 H 92 11/08/18 12:08 95 H 100 11/08/18 12:06 103 H 124/58 L 11/08/18 12:03 97 H 100 11/08/18 11:58 121 H 97 11/08/18 11:53 112 H 100 11/08/18 11:51 106 H 128/60 11/08/18 11:50 105 H 92 11/08/18 11:48 107 H 100 11/08/18 11:43 105 H 100 11/08/18 11:38 107 H 100 11/08/18 11:37 97 H 128/66 11/08/18 11:33 101 H 100 11/08/18 11:30 101 H 93 11/08/18 11:28 92 H 100 11/08/18 11:23 93 H 100 11/08/18 11:21 96 H 127/76 11/08/18 11:18 102 H 100 11/08/18 11:13 104 H 99 11/08/18 11:11 119 H 93 11/08/18 11:08 121 H 96 11/08/18 11:06 37.2 C 110 H 20 137/96 06/07/19 11:03 109 H 100 11/08/18 10:59 108 H 94 11/08/18 10:58 98 H 99 11/08/18 10:53 122 H 100 11/08/18 10:52 110 H 132/76 11/08/18 10:48 110 H 100 11/08/18 10:43 106 H 100 11/08/18 10:38 111 H 100 11/08/18 10:37 110 H 130/74 11/08/18 10:33 99 H 100 11/08/18 10:28 100 H 100 11/08/18 10:23 102 H 100 11/08/18 10:22 105 H 20 131/64 11/08/18 10:18 101 H 100 11/08/18 10:13 113 H 100 11/08/18 10:08 99 H 100 11/08/18 10:07 94 H 125/64 11/08/18 10:03 87 100 11/08/18 09:58 91 H 100 11/08/18 09:53 93 H 100 11/08/18 09:51 95 H 118/67 11/08/18 09:48 89 100 11/08/18 09:43 103 H 100 11/08/18 09:38 101 H 100 11/08/18 09:37 93 H 91 11/08/18 09:36 85 20 128/72 11/08/18 09:33 99 H 100 11/08/18 09:28 95 H 100 11/08/18 09:23 101 H 119/70 100 11/08/18 09:20 102 H 92 11/08/18 09:18 95 H 96 11/08/18 09:13 94 H 100 11/08/18 09:08 90 100 11/08/18 09:06 96 H 126/66 11/08/18 09:03 106 H 100 11/08/18 09:00 37.0 C 11/08/18 08:58 98 H 99 11/08/18 08:53 96 H 98 11/08/18 08:51 20 126/69 11/08/18 08:48 94 H 98 11/08/18 08:43 98 H 98 11/08/18 08:38 90 97 11/08/18 08:37 90 123/70 11/08/18 08:33 97 H 98 11/08/18 08:30 103 H 92 11/08/18 08:28 97 H 98 11/08/18 08:23 102 H 98 11/08/18 08:22 94 H 20 129/73 11/08/18 08:18 98 H 98 11/08/18 08:13 104 H 98 11/08/18 08:08 97 H 96 11/08/18 08:03 104 H 151/84 H 97 11/08/18 07:58 107 H 98 11/08/18 07:57 108 H 156/87 H 11/08/18 07:55 104 H 148/81 H 11/08/18 07:53 108 H 131/79 97 11/08/18 07:51 104 H 135/81 11/08/18 07:49 104 H 142/79 H 11/08/18 07:48 98 H 97 11/08/18 07:47 100 H 156/87 H 11/08/18 07:45 99 H 117/65 11/08/18 07:43 102 H 126/73 98 11/08/18 07:41 101 H 134/69 11/08/18 07:39 93 H 120/65 11/08/18 07:38 107 H 97 11/08/18 07:37 89 127/74 11/08/18 07:35 100 H 140/77 11/08/18 07:33 99 H 99 11/08/18 07:28 111 H 99 11/08/18 07:23 103 H 140/71 100 11/08/18 07:19 92 H 20 135/73 11/08/18 05:59 37.4 C 109 H 20 138/71 11/08/18 05:53 113 H 198/85 H
--- NOTE | 2018-11-08 14:35 | Anesthesia Procedure Note ---
Date of Service November 08, 2018 Anesthesia Post Epidural Note Vital Signs Vital Signs: Temp Pulse Resp BP Pulse Ox 37.2 C 117 H 20 118/59 L 98 11/08/18 11:06 11/08/18 14:21 11/08/18 14:21 11/08/18 14:21 11/08/18 13:48 Pain Intensity Bilateral Abdomen: Pain Intensity: 5 Notes Mental Status: alert / awake / arousable Patient Amnestic to Procedure: No Nausea / Vomiting: adequately controlled Pain: adequately controlled Airway Patency, RR, SpO2: stable & adequate BP & HR: stable & adequate Hydration State: stable & adequate Neuraxial Anesthesia: was administered and sensory block is resolving Anesthetic Complications: no major complications apparent and Pt Satisfied with anesthetic care Epidural: Removed without complications and With tip intact
[2018-11-08] MEDS ORDERED: BISACODYL 10 MG SUPP PR PRN (14:38)
[2018-11-08] MEDS ORDERED: SUPERCREAM 0.870% 15 GM JAR EXT PRN (14:38)
[2018-11-08] MEDS ORDERED: HYDROCORTISONE ACETATE 25 MG SUPP PR PRN (14:38)
[2018-11-08] MEDS ORDERED: BENZOCAINE 20% AER SPR 82.5 GM CAN EXT PRN (14:38)
[2018-11-08] MEDS ORDERED: DIPHTHERIA/TETANUS/PERTUSSIS 0.5 ML SYR/VIAL IM ONE (14:38)
[2018-11-08] MEDS ORDERED: LACTATED RINGER'S 1,000 ML IV SCH (14:45)
[2018-11-08] MEDS: ACETAMINOPHEN 325 MG TAB PO PRN (16:28)
[2018-11-08] MEDS: IBUPROFEN 600 MG TAB PO PRN (19:40)
[2018-11-08] MEDS: DOCUSATE SODIUM 100 MG CAP PO SCH (21:08)
[2018-11-08] MEDS: OXYCODONE/ACETAMINOPHEN 5mg/325mg TAB PO PRN (22:33)
--- NOTE | 2018-11-08 22:59 | Delivery Summary ---
DATE OF OPERATION: 11/08/2018 TIME OF DELIVERY OF BABY: 1344 hours. TIME OF DELIVERY OF PLACENTA: 1409 hours. DETAILS OF DELIVERY: The patient was found to be fully dilated and desired to push. She pushed for about 39 minutes and there was a tight hymenal band around the perineum, which was holding the head. A small incision was made in the hymenal ring at 4 and 7 o'clock positions with the tip of Metzenbaum scissors. Then with the next few pushes head was delivered without difficulty, shoulders were delivered with minimal traction. There was a nuchal cord around the neck x1 which was reduced. Baby was handed off to the mother. Mouth and nose were suctioned. Cord was clamped x2 and cut at 1 minute delay. Cord blood was obtained. The vagina and perineum were checked for lacerations. There was a small second-degree laceration at the 7 o'clock position of the hymenal incision and then there was a small first-degree laceration at the 4 o'clock hymenal incision which was made earlier. Those were repaired with 2-0 Vicryl in a running fashion. Excellent hemostasis was achieved. There was noted to be first-degree periclitoral laceration superior to the urethral opening. A Doherty catheter was placed into the urethra and then this incision was repaired with 3-0 Vicryl and SH needle. Excellent hemostasis was achieved. Doherty catheter was kept in for the drainage of urinary bladder. Then placenta was found to be in the vagina, which delivered spontaneously intact and complete. Lower segment was cleared of all clots and debris. Fundus was firm. EBL was 300 mL and rest of the vagina and perineum were checked for lacerations and they were intact. No complications happened. Mom and baby tolerated the procedure well and baby was a viable male infant, Apgars 9/9, weight was 3394 grams and at the end of the procedure, sponge, lap, needle and instrument counts were correct x2 and no complications happened. I was present during whole procedure. I attest to the content of the Intraoperative Record and any orders documented therein. Any exceptions are noted below. [place]
[2018-11-09] MEDS: IBUPROFEN 600 MG TAB PO PRN ×4 (00:50→21:51)
--- NOTE | 2018-11-09 08:02 | Obstetrical Progress Note ---
Date of Service November 09, 2018 Subjective Patient is seen and examined. She feels well, no complaints. Ambulating without dizziness Voiding without difficulty Tolerating regular diet with out N&V Bleeding is minimal No fever/ chills/ CP/ SOB/ N&V/ Leg pain Breast feeding without problems Vital Signs Temp Pulse Resp BP 11/09/18 03:45 37.0 C 89 18 103/53 L 11/09/18 00:30 36.7 C 85 18 113/73 11/09/18 11/08/18 11/08/18 Range/Units 06:27 08:44 06:32 WBC Pending RBC Pending Hgb Pending Hct Pending MCV Pending MCH Pending MCHC Pending Plt Count Pending Sodium 138 (136-145) mmol/L Potassium 3.3 L (3.5-5.1) mmol/L Chloride 107 (98-107) mmol/L Carbon Dioxide 22 (21-32) mmol/L Anion Gap 10.0 (3-11) BUN 6 L (7-18) mg/dl Creatinine 0.78 (0.6-1.2) mg/dl Est Cr Clr Drug Dosing 141.6 ml/min Est GFR ( Amer) 126.8 Est GFR (Non-Af Amer) 109.4 BUN/Creatinine Ratio 8.1 L (10-20) Glucose 85 (70-99) mg/dl Calcium 9.5 (8.5-10.1) mg/dl Total Bilirubin 0.3 (0.2-1) mg/dl AST 24 (15-37) U/L ALT 18 (12-78) U/L Alkaline Phosphatase 263 H (45-117) U/L Lactate Dehydrogenase 233 (84-246) U/L Total Protein 6.8 (6.4-8.2) gm/dl Albumin 2.7 L (3.4-5.0) gm/dl Globulin 4.1 H (2.5-4.0) gm/dl Albumin/Globulin Ratio 0.7 L (0.9-2) PE: General: Alert, orientedx3, NAD Abd: soft, NT, fundus firm, below Umbilicus Perineum intact, Lochia rubra minimal Ext; NT, no edema AP: [] yo s/p , ppd# [] VSS Afebrile doing well Continue routine care All questions were answered D/C home [] Results & Data Vital Signs (Past 12 Hours) Vital Signs Temp Pulse Resp BP 11/09/18 03:45 37.0 C 89 18 103/53 L 11/09/18 00:30 36.7 C 85 18 113/73
--- NOTE | 2018-11-09 08:04 | Obstetrical Progress Note ---
Date of Service November 09, 2018 Subjective Patient is seen and examined. She feels well, no complaints. Ambulating without dizziness Voiding without difficulty Tolerating regular diet with out N&V Bleeding is minimal No fever/ chills/ CP/ SOB/ N&V/ Leg pain Breast feeding without problems Vital Signs Temp Pulse Pulse Resp BP BP Pulse Ox 11/09/18 03:45 37.0 C 89 18 103/53 L 11/09/18 00:30 36.7 C 85 18 113/73 11/08/18 19:30 37.5 C 104 H 18 108/72 11/08/18 16:00 37.7 C H 101 H 18 124/64 100 11/08/18 15:42 37.7 C H 104 H 20 121/70 11/08/18 15:36 120 H 119/70 11/08/18 15:21 129 H 120/67 11/08/18 15:06 111 H 20 121/65 11/08/18 14:51 112 H 20 118/57 L 11/08/18 14:36 117 H 20 126/64 11/08/18 14:21 117 H 20 118/59 L 11/08/18 14:06 122 H 128/59 L 11/08/18 13:51 137 H 127/54 L 11/08/18 13:48 129 H 98 11/08/18 13:43 131 H 100 11/08/18 13:41 121 H 91 11/08/18 13:38 117 H 100 11/08/18 13:36 142 H 136/60 89 L 11/08/18 13:33 155 H 100 11/08/18 13:31 140 H 88 L 11/08/18 13:28 135 H 93 11/08/18 13:26 153 H 91 11/08/18 13:23 138 H 100 11/08/18 13:22 109 H 148/67 H 11/08/18 13:18 133 H 100 11/08/18 13:13 148 H 100 11/08/18 13:08 133 H 98 11/08/18 13:07 97 H 149/73 H 11/08/18 13:03 122 H 100 11/08/18 12:58 100 H 100 11/08/18 12:53 99 H 100 11/08/18 12:51 112 H 129/76 11/08/18 12:48 117 H 100 11/08/18 12:43 98 H 100 11/08/18 12:38 97 H 126/69 100 11/08/18 12:33 96 H 100 11/08/18 12:28 96 H 100 11/08/18 12:23 104 H 100 11/08/18 12:22 96 H 131/68 11/08/18 12:18 108 H 100 11/08/18 12:13 98 H 100 11/08/18 12:09 99 H 92 11/08/18 12:08 95 H 100 11/08/18 12:06 103 H 124/58 L 11/08/18 12:03 97 H 100 11/08/18 11:58 121 H 97 11/08/18 11:53 112 H 100 11/08/18 11:51 106 H 128/60 11/08/18 11:50 105 H 92 11/08/18 11:48 107 H 100 11/08/18 11:43 105 H 100 11/08/18 11:38 107 H 100 11/08/18 11:37 97 H 128/66 11/08/18 11:33 101 H 100 11/08/18 11:30 101 H 93 11/08/18 11:28 92 H 100 11/08/18 11:23 93 H 100 11/08/18 11:21 96 H 127/76 11/08/18 11:18 102 H 100 11/08/18 11:13 104 H 99 11/08/18 11:11 119 H 93 11/08/18 11:08 121 H 96 11/08/18 11:06 37.2 C 110 H 20 137/96 11/08/18 11:03 109 H 100 11/08/18 10:59 108 H 94 11/08/18 10:58 98 H 99 11/08/18 10:53 122 H 100 11/08/18 10:52 110 H 132/76 11/08/18 10:48 110 H 100 11/08/18 10:43 106 H 100 11/08/18 10:38 111 H 100 11/08/18 10:37 110 H 130/74 11/08/18 10:33 99 H 100 11/08/18 10:28 100 H 100 11/08/18 10:23 102 H 100 11/08/18 10:22 105 H 20 131/64 11/08/18 10:18 101 H 100 11/08/18 10:13 113 H 100 11/08/18 10:08 99 H 100 11/08/18 10:07 94 H 125/64 11/08/18 10:03 87 100 11/08/18 09:58 91 H 100 11/08/18 09:53 93 H 100 11/08/18 09:51 95 H 118/67 11/08/18 09:48 89 100 11/08/18 09:43 103 H 100 11/08/18 09:38 101 H 100 11/08/18 09:37 93 H 91 11/08/18 09:36 85 20 128/72 11/08/18 09:33 99 H 100 11/08/18 09:28 95 H 100 11/08/18 09:23 101 H 119/70 100 11/08/18 09:20 102 H 92 11/08/18 09:18 95 H 96 11/08/18 09:13 94 H 100 11/08/18 09:08 90 100 11/08/18 09:06 96 H 126/66 11/08/18 09:03 106 H 100 11/08/18 09:00 37.0 C 11/08/18 08:58 98 H 99 11/08/18 08:53 96 H 98 11/08/18 08:51 20 126/69 11/08/18 08:48 94 H 98 11/08/18 08:43 98 H 98 11/08/18 08:38 90 97 11/08/18 08:37 90 123/70 11/08/18 08:33 97 H 98 11/08/18 08:30 103 H 92 11/08/18 08:28 97 H 98 11/08/18 08:23 102 H 98 11/08/18 08:22 94 H 20 129/73 11/08/18 08:18 98 H 98 11/08/18 08:13 104 H 98 11/08/18 08:08 97 H 96 Intake and Output 11/08/18 11/09/18 11/09/18 22:59 06:59 14:59 Intake Total 440 / 1345.50 Output Total 2700 / 3100 Balance -2260 / -1754.50 Intake: Oral 440 / 440 Output: Urine Amount (Catheter) 2700 / 3100 Gan/Indwelling 2700 / 2700 11/09/18 11/08/18 11/08/18 Range/Units 06:27 08:44 06:32 WBC Pending RBC Pending Hgb Pending Hct Pending MCV Pending MCH Pending MCHC Pending Plt Count Pending Sodium 138 (136-145) mmol/L Potassium 3.3 L (3.5-5.1) mmol/L Chloride 107 (98-107) mmol/L Carbon Dioxide 22 (21-32) mmol/L Anion Gap 10.0 (3-11) BUN 6 L (7-18) mg/dl Creatinine 0.78 (0.6-1.2) mg/dl Est Cr Clr Drug Dosing 141.6 ml/min Est GFR ( Amer) 126.8 Est GFR (Non-Af Amer) 109.4 BUN/Creatinine Ratio 8.1 L (10-20) Glucose 85 (70-99) mg/dl Calcium 9.5 (8.5-10.1) mg/dl Total Bilirubin 0.3 (0.2-1) mg/dl AST 24 (15-37) U/L ALT 18 (12-78) U/L Alkaline Phosphatase 263 H (45-117) U/L Lactate Dehydrogenase 233 (84-246) U/L Total Protein 6.8 (6.4-8.2) gm/dl Albumin 2.7 L (3.4-5.0) gm/dl Globulin 4.1 H (2.5-4.0) gm/dl Albumin/Globulin Ratio 0.7 L (0.9-2) PE: General: Alert, orientedx3, NAD Abd: soft, NT, fundus firm, below Umbilicus Perineum intact, Lochia rubra minimal Ext; NT, no edema AP: 18 yo s/p , ppd# 1, gan was placed due to periurethral repair VSS Afebrile doing well d/c gan Continue routine care All questions were answered D/C home tomorrow Results & Data Vital Signs (Past 12 Hours) Vital Signs Temp Pulse Resp BP 11/09/18 03:45 37.0 C 89 18 103/53 L 11/09/18 00:30 36.7 C 85 18 113/73
[2018-11-09] MEDS: PRENATAL VITAMIN 1 TAB PO SCH (08:40)
[2018-11-09] MEDS: DOCUSATE SODIUM 100 MG CAP PO SCH ×2 (08:40→21:51)
[2018-11-09] MEDS: FERROUS SULFATE 325 MG TAB PO SCH (08:40)
[2018-11-09 08:43] LABS: Hematocrit (blood only) 27.3 % (37-47); Hemoglobin 9.1 g/dL (12.0-16.0); Mean Corpuscular Hgb Conc 33.3 g/dL (32-36); Mean Corpuscular Volume 87.2 fL (80-100); Mean Platelet Volume 10.3 fL (7.4-10.4); Platelet Count 175 K/uL (130-400); RDW Coefficient of Variation 14.3 % (11.5-14.5); RDW Standard Deviation 44.6 fL (36.4-46.3); Red Blood Count 3.13 M/uL (4.2-5.4); White Blood Count 12.61 K/uL (4.8-10.8)
[2018-11-09] MEDS: OXYCODONE/ACETAMINOPHEN 5mg/325mg TAB PO PRN ×2 (09:10→15:10)
--- NOTE | 2018-11-09 09:41 | Obstetrical Progress Note ---
Date of Service November 09, 2018 Physical Exam Physical Exam: abdomen soft and non tender vaginal bleeding scant to moderate no calf tenderness ambulating well unable to void catheter removed hgb 9.4 Results & Data Vital Signs (Past 12 Hours) Vital Signs Temp Pulse Resp BP 11/09/18 03:45 37.0 C 89 18 103/53 L 11/09/18 00:30 36.7 C 85 18 113/73
[2018-11-09] MEDS ORDERED: BISACODYL 5 MG TABEC PO SCH (20:00)
[2018-11-09] MEDS: ACETAMINOPHEN 325 MG TAB PO PRN (20:23)
[2018-11-09 22:01] LABS: Appearance Urine Clear (Clear); Bilirubin Urine Negative (Negative); Blood Urine Negative (Negative); Color Urine Yellow; Glucose Urine UA Negative (Negative); Ketones Urine Negative (Negative); Leukocyte Esterase Urine Negative (Negative); Nitrite Urine Negative (Negative); Protein Urine Negative (Negative); Specific Gravity Urine 1.012 (1.000-1.030); Urobilinogen Urine Negative (Negative); pH Urine 6.5 (4.5-7.5)
[2018-11-09] MEDS: AMPICILLIN 2,000 MG in SODIUM CHLOR 0.9% AD-VAN 100 ML IV SCH (22:01)
[2018-11-10] MEDS: IBUPROFEN 600 MG TAB PO PRN ×3 (01:49→12:32)
[2018-11-10] MEDS: ACETAMINOPHEN 325 MG TAB PO PRN (03:46)
[2018-11-10] MEDS: AMPICILLIN 2,000 MG in SODIUM CHLOR 0.9% AD-VAN 100 ML IV SCH ×2 (04:01→09:22)
[2018-11-10 06:24] LABS: Hematocrit (blood only) 26.8 % (37-47); Hemoglobin 8.8 g/dL (12.0-16.0)
--- NOTE | 2018-11-10 07:35 | Obstetrical Progress Note ---
Date of Service November 10, 2018 Physical Exam Physical Exam: abdomen soft and non tender vaginal bleeding scant no calf tenderness ambulating well hgb 8.8 cultures are pending Results & Data Vital Signs (Past 12 Hours) Vital Signs Temp Pulse Resp BP Pulse Ox 11/10/18 00:15 37.3 C 100 H 18 102/55 L 11/09/18 21:50 37.8 C H 114 H 16 120/68 99 11/09/18 20:51 38.0 C H
[2018-11-10] MEDS: DOCUSATE SODIUM 100 MG CAP PO SCH (08:44)
[2018-11-10] MEDS: FERROUS SULFATE 325 MG TAB PO SCH (08:44)
[2018-11-10] MEDS: PRENATAL VITAMIN 1 TAB PO SCH (08:44)
== END 2018-11-10 15:00 | disposition home or self-care (01) | DRG 807 ==
LOC: OPB 05:47 → 4S1 05:50 → 4S2 16:11